=== PATIENT | male | born 1970 | race American Indian/Alaskan Native ===

== ENCOUNTER 2018-12-17 01:31 | Emergency (ER) | payer OTHER ==
[2018-12-17 01:41] VITALS: BP 147/97
[2018-12-17 03:20] LABS: Bacteria,Urine 1+ /HPF (Negative); Bilirubin,Urine NEG (Negative); Blood,Urine SM (Negative); Color,Urine Yellow (Yellow); Mucus,Urine FEW /HPF; Protein,Urine <15 mg/dL mg/dL (Negative); Urobilinogen,Urine < 2.0 mg/dL (<2.0)
[2018-12-17] MEDS ORDERED: XYLOCAINE 1% MPF 5 mL INFILTRATI ONE (03:30)
[2018-12-17] MEDS ORDERED: ROCEPHIN IM ONE (03:30)
[2018-12-17] MEDS ORDERED: ZITHROMAX PO ONE (03:30)
--- NOTE | 2018-12-17 03:37 | Emergency Department Report ---
ED Male HPI - General Chief complaint: Urogenital-Male Stated complaint: POSS STD Time Seen by Provider: 12/17/18 02:28 Source: patient Mode of arrival: Ambulatory Limitations: No Limitations - History of Present Illness Initial comments: This is a 48-year-old male nontoxic, well nourished in appearance, no acute signs of distress presents to the ED with c/o of penile discharge x 3 days. Patient stated that symptoms started after having a sexual intercourse 3 days ago without protection. Patient denies any penile bleeding, ulcers or lesions. Patient denies any back pain. Patient denies any abdominal pain. Patient denies any urinary symptoms. Patient denies any nausea, vomiting, chest pain, shortness of breathe, fever, chills, headache, back pain, numbness, tingling, stiff neck. Patient denies any allergies significant past medical history. MD Complaint: penile discharge -: days(s) (3) Location: penis Severity scale (0 -10): 0 Improves with: none Worsens with: none discharge. denies: swelling, mass, rash, urinary retention, blood in urine, dysuria, fever, nausea/vomiting, incontinence - Related Data Sexually active: Yes Previous Rx's Medication Instructions Recorded Last Taken Type HYDROcodone/APAP 5-325 [[place] 1 each PO Q6HR PRN #14 tablet 03/17/14 Unknown Rx 5/325] Ibuprofen [Motrin 800 MG tab] 800 mg PO Q8H #30 tablet 03/17/14 Unknown Rx Sulfamethoxazole/Trimethoprim 1 each PO BID #20 tablet 12/17/18 Unknown Rx [Bactrim DS TAB] Allergies Allergy/AdvReac Type Severity Reaction Status Date / Time No Known Allergies Allergy Verified 03/17/14 00:34 ED Review of Systems ROS: Stated complaint: POSS STD Other details as noted in HPI Constitutional: denies: chills, fever Eyes: denies: eye pain, eye discharge, vision change ENT: denies: ear pain, throat pain Respiratory: denies: cough, shortness of breath, wheezing Cardiovascular: denies: chest pain, palpitations Endocrine: no symptoms reported Gastrointestinal: denies: abdominal pain, nausea, diarrhea Genitourinary: discharge. denies: urgency, dysuria Musculoskeletal: denies: back pain, joint swelling, arthralgia Skin: denies: rash, lesions Neurological: denies: headache, weakness, paresthesias Psychiatric: denies: anxiety, depression Hematological/Lymphatic: denies: easy bleeding, easy bruising ED Past Medical Hx - Past Medical History Previous Medical History?: No - Surgical History Past Surgical History?: No - Social History Smoking Status: Never Smoker Substance Use Type: None - Medications Home Medications: Home Medications Medication Instructions Recorded Confirmed Last Taken Type HYDROcodone/APAP 5-325 [[place] 1 each PO Q6HR PRN #14 tablet 03/17/14 Unknown Rx 5/325] Ibuprofen [Motrin 800 MG tab] 800 mg PO Q8H #30 tablet 03/17/14 Unknown Rx Sulfamethoxazole/Trimethoprim 1 each PO BID #20 tablet 12/17/18 Unknown Rx [Bactrim DS TAB] ED Physical Exam - General Limitations: No Limitations General appearance: alert, in no apparent distress - Head Head exam: Present: atraumatic, normocephalic - Neck Neck exam: Present: normal inspection, full ROM - exam: Present: urethral discharge, other (brusher hand Ramiro present during exam). Absent: testicular tenderness, scrotal swelling, vertical testicular lie, circumcision External exam: Present: other ( brusher hand Ramiro present on exam). Absent: erythema, lesions, lacerations, ecchymosis, bleeding - Extremities Exam Extremities exam: Present: normal inspection, full ROM - Back Exam Back exam: Present: normal inspection, full ROM. Absent: tenderness, CVA tenderness (R), CVA tenderness (L), muscle spasm, paraspinal tenderness, vertebral tenderness, rash noted - Neurological Exam Neurological exam: Present: alert, oriented X3 - Psychiatric Psychiatric exam: Present: normal affect, normal mood - Skin Skin exam: Present: warm, dry, intact, normal color. Absent: rash ED Course Vital Signs 12/17/18 01:37 Temperature 98.6 F Pulse Rate 76 Respiratory 18 Rate Blood Pressure 147/97 O2 Sat by Pulse 98 Oximetry - Reevaluation(s) Reevaluation #1: 12/17/18 03:35 Patient is speaking in full sentences with no signs of distress noted. ED Medical Decision Making - Medical Decision Making This is a 48-year-old male that presents with possible STD. Patient is stable was examined by me. There is no abdominal tenderness. UA obtained. Gonorrhea chlamydia swab pending. Patient was instructed to return in 3-5 days for GC results. Patient wanted empirical treatment so patient received 250 mg Rocephin and 1 g of azithromycin by mouth. Patient was instructed to Follow-up with a primary care doctor in 3-5 days or if symptoms worsen and continue return to emergency room as soon as possible. At time of discharge, the patient does not seem toxic or ill in appearance. No acute signs of distress noted. Patient agrees to discharge treatment plan of care. No further questions noted by the patient. Critical care attestation.: If time is entered above; I have spent that time in minutes in the direct care of this critically ill patient, excluding procedure time. ED Disposition Clinical Impression: Possible exposure to STD UTI (urinary tract infection) Qualifiers: Urinary tract infection type: acute cystitis Hematuria presence: without hematuria Qualified Code(s): N30.00 - Acute cystitis without hematuria Disposition: TO HOME OR SELFCARE Is pt being admited?: No Does the pt Need Aspirin: No Condition: Stable Instructions: Safe Sex (ED), Urinary Tract Infection in Men (ED) Additional Instructions: Follow-up with a primary care doctor in 3-5 days or if symptoms worsen and continue return to emergency room as soon as possible. Return in 3-5 days for gonorrhea and chlamydia results. Prescriptions: Sulfamethoxazole/Trimethoprim [Bactrim DS TAB] 1 each PO BID #20 tablet Referrals: PRIMARY CAREMD [Referring] - 3-5 Days JELLY MARQUEZ MD [Staff Physician] - 3-[address] [facility] [Outside] - 3-5 Days [facility] [Outside] - 3-5 Days Forms: Work/School Release Form(ED)
== END 2018-12-17 04:15 | disposition home or self-care (01) ==
LOC: ED 01:31
DX: N30.00 Acute cystitis without hematuria (principal)
CPT/HCPCS: 81001; 87086; 87591; 96372; 99283; J0696